=== PATIENT | male | born 1955 | race Caucasian/White ===

== ENCOUNTER 2019-02-14 12:59 | Day surgery (SDC) | payer OTHER, SELFPAY ==
[2019-02-14] VITALS (10 sets, daily range): BP systolic 101–134; BP diastolic 67–87; PULSE 64–77; RESP 11–17; TEMP 36–36.8; O2SAT 97–998; BMI 20.7
--- NOTE | 2019-02-14 | DI.RAD.S_ITS ---
PROCEDURE: XR FOOT LT MIN 3V INDICATIONS: LEFT MEDIAL CUNIFORM ORIF TECHNIQUE: 5 intraoperative fluoroscopic views of the foot were acquired. COMPARISON: None. FINDINGS: Intraoperative fluoroscopic images of left midfoot shows fusion of medial cuneiform, navicular bone and anterior talus with dorsal fixation plate and 2 surgical screws within talus. Alignment of left foot is anatomic. IMPRESSION: Fluoroscopy guidance was provided intraoperatively for medial midfoot fusion. Dictated by: Darshan Hartman M.D. on 02/14/2019 at 17:05 Approved by: Darshan Hartman M.D. on 02/14/2019 at 17:07
[2019-02-14] MEDS: LACTATED RINGERS 1,000 ML 42 ML IV ×2 (13:39→16:12)
--- NOTE | 2019-02-14 14:15 | SUR.PREOP ---
Dr. Morris notified pt took Ibuprofen 02/13. No new orders.
[2019-02-14] MEDS: CEFAZOLIN 2 GM/100 ML FROZ.PIGGY IV (14:33)
--- NOTE | 2019-02-14 15:00 | PM.PREOP ---
Pre-operative Note Interval Note History & Physical reviewed/Exam performed by Physician: Yes Changes to H&P: No H&P completed within 30 days and has changed as indicated here:: Patient seen and Marked preoperatively. Late injury H&P update.
--- NOTE | 2019-02-14 15:11 | SUR.OPER ---
Supine on padded OR bed, head on pillow, arms secured on padded arm boards at <90 degrees abduction, legs uncrossed, safety belt at thigh, tape over blanket over lower right leg, left leg gel bump under buttock folded blankets under foot and left leg draped free .
[2019-02-14] MEDS: BUPIVACAINE 0.25% (PF) VIAL 30 ML INJ (15:24)
[2019-02-14] MEDS: fentaNYL 100 MCG/2 ML INJ 25 MCG IV ×3 (17:33→17:45)
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
[2019-02-14] MEDS: OXYCODONE IR 5 MG TABLET PO (17:56)
== END 2019-02-14 18:54 | disposition home or self-care (01) ==
PROVIDERS: Visit Provider Orthopaedic Surgery Foot and Ankle Surgery
PROC: (CPT 28485; principal; 2019-02-14 14:30)
DX: S92.252A Displaced fracture of navicular [scaphoid] of left foot, initial encounter for closed fracture (principal); S92.242A Displaced fracture of medial cuneiform of left foot, initial encounter for closed fracture; S92.122A Displaced fracture of body of left talus, initial encounter for closed fracture; V29.9XXA Motorcycle rider (driver) (passenger) injured in unspecified traffic accident, initial encounter
CPT/HCPCS: 28445; 28465 ×2; 73630; 76000; J0690; J1100; J1885; J2405; J2704; J3010

== ENCOUNTER → 2024-11-05 17:19 | Outpatient (CLI) | payer MEDICARE, OTHER, SELFPAY ==
[2024-11-05 18:42] LABS: Prostate Specific Antigen 8.03 ng/mL (0.10-4.00)
== END ==
PROVIDERS: PCP Family Medicine; Referring Provider Urology; Visit Provider Urology
DX: R97.20 Elevated prostate specific antigen [PSA] (principal); N40.1 Benign prostatic hyperplasia with lower urinary tract symptoms; N13.8 Other obstructive and reflux uropathy
CPT/HCPCS: 36415; 84153

== ENCOUNTER → 2025-02-24 08:21 | Outpatient (CLI) | payer MEDICARE, OTHER, SELFPAY | PROVIDERS: PCP Family Medicine; Visit Provider Urology | DX: N40.1 Benign prostatic hyperplasia with lower urinary tract symptoms (principal); N13.8 Other obstructive and reflux uropathy; R97.20 Elevated prostate specific antigen [PSA] | CPT/HCPCS: 87077; 87086; 87186; 99214 ==

== ENCOUNTER 2025-03-03 10:46 | Day surgery (SDC) | payer MEDICARE, OTHER, SELFPAY ==
[2025-02-25 10:27] VITALS: BMI 21.7
[2025-03-03] VITALS (22 sets, daily range): BP systolic 99–141; BP diastolic 56–86; PULSE 59–75; RESP 6–19; TEMP 35.9–36.3; O2SAT 92–100; BMI 21.7
--- NOTE | 2025-03-03 | PATH_ITS ---
[facility] Accession Number: [id number] No. of containers..01 Tissue . 01 Material submitted: . prostate - PROSTATE CHIPS . 01 Diagnosis: PROSTATE CHIPS (WEIGHT 37 GRAMS), TRANSURETHRAL RESECTION OF THE PROSTATE: Prostatic tissue with stromal and glandular hyperplasia. Scant urothelium with no significant atypia. MRV 03/10/2025 1655 Local . 01 Electronically signed: . Jennifer Cowan MD, Pathologist NPI- [id number] . 01 Gross description: . Received in formalin with two patient identifiers and labeled prostate chips. The specimen consists of multiple fragments of fisher, rubbery tissue admixed with a large amount of hemorrhagic material weighing 37 grams in total and aggregating to 10 x 10 x 1.5 cm. The hemorrhagtic blood clot portion has been from specimen. The specimen weighs 37 grams in total which includes 4 grams of clotted material which is retained in the original container. The remaining 33 grams of prostate chips are entirely submitted in cassettes A1-A15. ([id number]) /CARSON 03/09/2025 0947 Local . 01 Pathologist provided ICD-10: N40.1 . 01 CPT . 284578 Specimen Comment: A courtesy copy of this report has been sent to [facility] Pathology Performed at: [address] [facility], [place], [place] [id number] MD Andrade Luna MD Phone: [phone]
[2025-03-03] MEDS: LACTATED RINGERS 1,000 ML 21 ML IV (11:27)
--- NOTE | 2025-03-03 12:12 | PM.PREOP ---
Pre-operative Note COVID-19 COVID-19 status: Not tested Interval Note History & Physical reviewed/Exam performed by Physician: Yes Changes to H&P: No
[2025-03-03] MEDS: levoFLOXacin 500 MG/100 ML PIGGYBACK 100 MG IV (12:49)
--- NOTE | 2025-03-03 13:04 | SUR.OPER ---
Lithotomy on padded OR bed, head on pillow, arms secured on padded arm boards at <90 degrees abduction. Legs secured in padded yellow fins stirrups. Safety strap across abdomen.
--- NOTE | 2025-03-03 14:55 | P.OP_ITS ---
Operative Date/Time/Diagnoses Date of procedure: 03/03/25 Time of procedure: 13:00 Pre-op diagnosis: Benign prostatic hyperplasia with lower urinary tract symptoms Post-op diagnosis: same Procedure & Clinicians Procedure: Cystoscopy Aquablation Same procedure(s) as scheduled: Yes Indications: 69 y/o M noted to have symptoms consistent w/ BPH and LUTS that are currently managed with Tamsulosin 0.8mg daily. Also discussed the possible addition of Finasteride 5mg daily (discussed possible side effects to include decreased libido, worsening erectile dysfunction, loss of ejaculate volume as well as painful breast development or nipple tenderness), or a lower urinary tract evaluation prior to a bladder outlet procedure. Unfortunately, he developed AUR in Jan. Discussed absolute indications for treatment either medically or surgically to include: urinary retention, development of large bladder stones, refractory gross hematuria, recurrent urinary tract infections and renal dysfunction. Reviewed that at this time, he does not have any absolute indications for treatment as he was able to pass his voiding trial. His cysto scopy and TRUS prostate were notable for coaptating lateral prostatic lobes w/ a moderate sized intravesical median lobe and a volume of 126 cc. Discussed that he otherwise would be a candidate for Aquablation. Discussed risks of the procedure to include but not limited to pain, bleeding, infection, injury to urethra/bladder/either ureteral orifice, clot retention, irritative voiding symptoms for several months following the procedure, urinary incontinence, erectile dysfunction, retrograde ejaculation, need for open emergent repair of any bladder or ureteral injuries, urethral stricture or bladder neck contracture development, need for repeat procedures. Surgeon: Rg Guillen Assisted?: No Anesthesia Type: General Operative Notes Findings: Coaptating lateral prostatic lobes, moderate sized intravesical median lobe Closure Type: not applicable Specimen(s): other (prostate chips) Applied: catheter Estimated Blood Loss (mL): 50 Blood products transfused: none Procedure in detail: After informed consent was obtained, the patient was identified brought to the operating room where he was placed in his supine position on the table.? Once there anesthesia was induced and maintained.? Ensuring an adequate level of anesthesia the patient was transitioned to the lithotomy position where after time-out he was prepped.? After prepping, ensuring an adequate level of anesthesia, administration IV antibiotics and time-out 60 cc of ultrasound gel was instilled within the rectum and the ultrasound probe which had been attached to the TRUS stepper which was attached to the TRUS stepper articulating arm which was secured to the bed was advanced into the rectum under direct vision via the ultrasound.? The ultrasound probe was then aligned and confirmation made that the prostate was centered and aligned in both the sagittal and transverse views.? The bladder neck, verumontanum, central and transitional zones were identified.? With the ultrasound in place and adjusted the patient was then draped in a sterile fashion. With the patient draped the 24 Russian aqua beam handpiece was then inserted through the urethra and advanced into the bladder.? Cystoscopy was then performed and no concerning bladder mass or lesions were noted.? Bilateral ureteral orifices were noted to be orthotopic in nature.? As the cystoscope was advanced the level of the sphincter, verumontanum, bladder neck were all identified via ultrasound and under direct vision.? The aqua beam hand place was then secured to the handpiece articulating arm which had been secured to the bed.? The Aquablation handpiece and TRUS probe were confirmed to be parallel and colinear.? Confirmation was then made that the aqua beam handpiece and nozzle was centered and anterior to the bladder neck. ?The cystoscope was then retracted under direct vision in the sphincter and verumontanum were identified.? The tip of the cystoscope was then placed proximal to the external sphincter.? Compression was applied with the TRUS probe to the prostate.? The alignment of the TRUS probe and aqua beam handpiece was once again confirmed.? Horizontal alignment of the handpiece water jet was then performed.? With these adjustments made, the treatment zones were then planned using real-time ultrasound.? In the largest transverse view of the prostate the depth and radial angles were determined and set again in the transverse view of the prostate.? In the longitudinal and sagittal view the Aquablation nozzle was identified and its position registered with the software and robot.? The treatment contours were then determined and adjusted to reflect the intended margins of resection.? Following our plan confirmation, the Aquablation resection treatment was started.? A 2nd pass was then completed in similar fashion after the 1st pass had been completed.? At this point, the Aqua hand piece was removed from the urethra. The 26Fr resectoscope was then inserted into the urethra and cystoscopy was repeated.? The Elik boatbuilder apprentice wood was utilized to evacuate the blood clots from the bladder.? The bladder neck was then resected using the bipolar Gyrus loop.? Bilateral ureteral orifices were again identified and noted to be intact at case end.? Hemostasis was obtained and noted to be excellent at case end.? The resect oscope was then removed and a 24Fr Zbigniew 3-way hematuria catheter was inserted through the urethra and into the bladder.? 45cc of sterile water was utilized for balloon insufflation.? Efflux was noted to be clear at case end.? Anesthesia was reversed, he was extubated in the OR and transferred to the PACU in stable condition for recovery. Complications: none Post-operative Condition: stable Disposition: PACU Plan for aftercare: Will continue to run CBI for a few hours to evaluate the efflux from his catheter.? Should it remain relatively clear and with minimal blood clots, will discharge home with catheter in place and have him return to Urology clinic in 2 days for a voiding trial.? Should his efflux remain red or have significant clot burden, will admit overnight for observation and continued CBI.
[2025-03-03] MEDS: PHENAZOPYRIDINE 100 MG TABLET 200 MG PO (15:16)
[2025-03-03] MEDS: fentaNYL 100 MCG/2 ML INJ IV ×3 (15:21→15:33)
--- NOTE | 2025-03-03 19:36 | SUR.PHASEII ---
Transferred patient to inpatient room in stable condition.
[2025-03-03] MEDS: SODIUM CHLORIDE 0.9% 1,000 ML 125 ML IV (20:00)
[2025-03-04] MEDS: SODIUM CHLORIDE 0.9% 1,000 ML 125 ML IV (02:00)
[2025-03-04 02:53] VITALS: BP 102/56; PULSE 65; RESP 18; TEMP 36.2; O2SAT 97
[2025-03-04 06:53] VITALS: BP 105/63; PULSE 65; RESP 18; TEMP 36.2; O2SAT 99
--- NOTE | 2025-03-04 07:56 | P.PN_ITS ---
Subjective Subjective Date Patient Seen: 03/04/25 Time Patient Seen: 07:00 Interval history: 69 y/o M w/ BPH and bothersome LUTS as well as urinary retention who strongly desired surgical management via an Aquablation procedure.? He is now POD 1 and tolerated the aforementioned procedure without any complications and had an uneventful night in the hospital.? He was tolerating a regular diet without nausea or vomiting and his pain remained well controlled.? The traction on his vivar catheter was removed this morning and his CBI rate titrated down. Exam Vital Signs (past 8 hours): - 03/04/25 02:53 03/04/25 06:53 Temperature 97.2 F L 97.1 F L Pulse Rate 65 65 Respiratory Rate 18 18 Blood Pressure 102/56 L 105/63 Pulse Oximetry 97 99 Oxygen Flow Rate 0 0 Oxygen Delivery Method Room Air Oxygen Flow Rate 0 Narrative Exam Narrative: GEN:? Alert and oriented X3.? No acute distress.? Well-nourished. EYES:? PERRLA, EOMI. HENT:? Moist mucus membranes, no scleral icterus, normal neck ROM. RESP:? Unlabored breathing, equal rise and fall of chest bilaterally, no cyanosis appreciated. CV:? No peripheral edema, unremarkable heart rate. ABD:? Soft, non-tender, non-distended, no palpable masses. :? Vivar catheter secured and draining light pink urine without clots. EXT:? No edema, clubbing or cyanosis. SKIN:? No rashes or lesions. NEURO:? No focal neurologic deficits, CN II-XII grossly intact. PSYCH:? Cooperative, appropriate mood and affect. [facility] Medical History Erectile dysfunction Elevated PSA BPH w urinary obs/LUTS History of migraine headaches H/O fracture of foot BPH (benign prostatic hyperplasia) Arthritis Navicular fracture, foot (02/02/19) Surgical History History of open reduction and internal fixation (ORIF) procedure (02/14/19) Hx of right inguinal hernia repair (~2003) Family History Father CAD (coronary artery disease) Grandfather CAD (coronary artery disease) Social History marital status: household members: spouse occupational status: employed leisure activities: exercise alcohol intake: current caffeine: Yes Assessment & Plan Post-op Postoperative Procedures: Procedures Operation Date: 03/03/25 12:30 Actual Procedure Side Surgeon p Aquablation Rg Guillen DO Postoperative status: doing well Postoperative plan: routine post-op care Postoperative plan narrative: 69 y/o M w/ h/o BPH and bothersome LUTS as well as urinary retention who strongly desired surgical management via an Aquablation procedure. He is POD 1 and is recovering as expected. The traction on his vivar catheter was released this AM and his CBI rate titrated down. - Will continue to hydrate well - Nursing team will take a picture of his output in his tube at 0945. If improving or steady, will clamp CBI. I will re-evaluate at noon. - Possible discharge around lunch. Time Spent With Patient Time with patient: 15-24 minutes
--- NOTE | 2025-03-04 12:51 | P.DS_ITS ---
History of Present Illness History of Present Illness Chief complaint: Prostate Resection with Aquablation Narrative: 69 y/o M w/ BPH and bothersome LUTS as well as urinary retention who strongly desired surgical management via an Aquablation procedure.? He is now POD 1 and tolerated the aforementioned procedure without any complications and had an uneventful night in the hospital.? He was tolerating a regular diet without nausea or vomiting and his pain remained well controlled.? The traction on his vivar catheter was removed this morning and his CBI rate titrated down. Discharge Providers Provider Discharge Date: 03/04/25 Primary care physician: Jason Cross MD Consults: 03/04/25 11:19 Consult to Pharmacy Routine Comment: high fall risk Discharge provider: Rg Guillen DO Exam Vital Signs (past 8 hours): - 03/04/25 06:53 Temperature 97.1 F L Pulse Rate 65 Respiratory Rate 18 Blood Pressure 105/63 Pulse Oximetry 99 Oxygen Flow Rate 0 Oxygen Delivery Method Room Air Oxygen Flow Rate 0 PFSH Medical History Erectile dysfunction Elevated PSA BPH w urinary obs/LUTS History of migraine headaches H/O fracture of foot BPH (benign prostatic hyperplasia) Arthritis Navicular fracture, foot (02/02/19) Surgical History History of open reduction and internal fixation (ORIF) procedure (02/14/19) Hx of right inguinal hernia repair (~2003) Family History Father CAD (coronary artery disease) Grandfather CAD (coronary artery disease) Social History marital status: household members: spouse occupational status: employed leisure activities: exercise alcohol intake: current caffeine: Yes Discharge Assessment & Plan Assessment and Plan Plan of Treatment: Will return to Urology clinic on 05 Mar 2025 for his voiding trial. Discharge Plan Discharge Plan Patient Disposition: Home Provider Discharge Comment: You can expect to have burning with urination for the next few days, this is normal and to be expected after your procedure. You may purchase an OTC medication (Phenazopyridine or Azo), a medication that can help with this burning and discomfort. This medication may change the color of your urine orange, however, this will resolve once you stop taking the medication. It is normal to have blood in your urine after the procedure. You may even pass large blood clots for the next several weeks. Expect to have periods of passage of blood clots and red urine which will then resolve after a few days and return to clear yellow urine. This is normal and part of the healing process of your bladder. As long as you are able to completely empty your bladder, it is okay. If you feel that you have to urinate and you are unable to empty your bladder, please go to the closest emergency room or contact our clinic for evaluation. It is important to refrain from heavy lifting (> 20 lbs) for the next two weeks. Please also avoid strenuous activities (running, elliptical machines, hiking, going to the gym). Please ensure that you have soft daily bowel movements for the next few weeks, you may purchase OTC Miralax and titrate the dosage as needed to achieve soft daily bowel movements. If you are discharged home with a vivar catheter, it is normal for the urine to switch between clear and red and even drain some blood clots. Some of the urine may also drain around the catheter, however, as long as the majority of the urine is draining through the catheter that is okay and to be expected. Should the catheter stop draining for an hour or more, please flush your catheter as directed to dislodge any blood clots that may be obstructing the catheter. Of note, you can flush your catheter as many times as necessary in order to get it draining again. Should you not be able to flush it clear, please present to [facility] ER for evaluation after hours, or the Urology clinic during daylight hours. You have an appointment to have your vivar catheter removed at 0900 on 05 Mar 2025. You then have an appointment to return to the Urology clinic at 1500 on 05 Mar 2025 to ensure you are able to urinate now that the catheter has been removed. Should you have any questions or concerns after hours, please call the Choir Member for [facility] at [phone]. They can relay any questions or concerns you have to the physician on-call. Nursing Discharge Comment: You can resume your normal diet as previous and your home medications as previous. Follow up with Dr Guillen as directed. Be sure you are drinking lots of fluids over the next 48 hours while your catheter is in place. Empty your catheter as instructed by the nurses. You can shower with your catheter in place, just be sure to dry the bag and tubing off when you get out of the shower. Discharge orders & Medications Discharge Orders: Discharge (Order); Ordered 03/04/25 Ordered By: Rg Guillen Prescriptions: Continued levofloxacin 750 mg tablet 750 mg PO DAILY Qty: 7 0RF magnesium citrate 125 mg capsule 125 mg PO DAILY Follow up/Referrals: Rg Guillen DO [Physician, Urology] Jason Cross MD [Primary Care Provider, Medical] Diet/Activity/Treatments Diet: Diet as Tolerated Catheter: 3-way Vivar Skin/Wound/Dressing Care Report to your healthcare provider any signs of infection, such as:: chills, fever, night sweats, increased pain and unusual drainage Visit Report/Discharge Packet Instructions: How to Care for Your Vivar Catheter -- Male, DI for Transurethral Resection of the Prostate Stand Alone Forms: Patient Portal/API, Surgery Discharge Print Language: Eritrean Discharge Data Primary Care Provider: Jason Cross Attending Provider: Rg Guillen PROFEE Charge Codes Discharge inpatient/observation: [id number]
--- NOTE | 2025-03-04 12:54 | CM.DANOTE ---
Initial DCP Assessment Note Pt is a 69 yo male, resident of [facility], s/p urology procedure. Reviewed chart, pt discussed in multidisciplinary rounds this morning. Patient is at functional and cognitive baseline. No barriers identified at this time to patient's safe discharge home w/family to assist; close outpatient f/u recommended. Social work team will plan to follow clinical course closely in case any DC needs or concerns arise. [facility] [place] Discharge Planning/Care Management CM Discharge Assessment Start: 03/03/25 18:46 Freq: Status: Active Protocol: Document 03/04/25 12:48 CORNELIUS (Rec: 03/04/25 12:53 CORNELIUS [id number]) Discharge Planning Assessment Assigned Discharge [facility] [place] [employer] Vertical Provider Jason Cross Insurance Comment MCR/[employer] DPOA/Assigned Iva Moreno , spouse Designee Name Contact Information [phone] Advance Directives? Yes: POA Advance Directives No on File History Provided By Patient Prior Living House Arrangements Household Members spouse Type of Drives own vehicle transporation used prior to admit Independent with ADL Yes 's Is patient alert and Yes oriented? Discharge Plan Home Transportation Spouse Arrangement Referrals Initiated None needed
--- NOTE | 2025-03-04 14:59 | PC.NURSE ---
Patient is A&OX4, VSS,afebrile on RA. He has continuous 3 way vivar irrigating bladder. Urologist Dr. Celeste arrives to titrate CBI. 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 He denies pain to urethra or abdomen. He has a fair appetite. He is able to ambulate in his room w/o dizziness and has a BM this morning. Urologist instructed to clamp CBI at 10 a.m. and returns during lunch approximately 1300 to clear patient for discharge home. The patient acknowledges understanding of completing oral antibiotics, take OTC pyridium for burning sensation, and how to manually irrigate catheter if flow of urines stops. He also verbalizes understanding to return to ED or urology office if he is unable to irrigate the vivar. He is escorted via w/ch with via with all of his personal belongings at approximately 14 :10pm
== END 2025-03-04 14:10 | disposition home or self-care (01) ==
LOC: OR 10:46 → AC 18:46
PROVIDERS: PCP Family Medicine; Referring Provider Urology; Visit Provider Urology
PROC: 0VT08ZZ Resection of Prostate, Via Natural or Artificial Opening Endoscopic (ICD-10-PCS; CPT 0421T; principal; 2025-03-03 12:30)
DX: N40.1 Benign prostatic hyperplasia with lower urinary tract symptoms (principal); R35.1 Nocturia
CPT/HCPCS: 0421T; C2596; J1100; J1171; J1956; J2405; J2704; J3010; J7030

== ENCOUNTER → 2025-03-05 14:59 | Outpatient (CLI) | payer MEDICARE, OTHER, SELFPAY ==
[2025-03-03 18:46] VITALS: BMI 21.7
== END ==
PROVIDERS: PCP Family Medicine; Visit Provider Urology
DX: N40.1 Benign prostatic hyperplasia with lower urinary tract symptoms (principal); N13.8 Other obstructive and reflux uropathy; R97.20 Elevated prostate specific antigen [PSA]
CPT/HCPCS: 51798; 81002; 87086; 99213

== ENCOUNTER → 2025-04-13 15:51 | Outpatient (CLI) | payer MEDICARE, OTHER, SELFPAY ==
[2025-03-03 18:46] VITALS: BMI 21.7
== END ==
PROVIDERS: PCP Family Medicine; Visit Provider Urology
DX: R39.9 Unspecified symptoms and signs involving the genitourinary system (principal)
CPT/HCPCS: 87086